=== PATIENT | male | born 1995 | race Caucasian/White ===

== ENCOUNTER 2019-01-08 20:03 | Emergency (ER) | payer BC ==
[2019-01-08 20:11] VITALS: BP 126/75
[2019-01-08] MEDS ORDERED: Amoxicillin/Clavulanate TAB* 875 MG PO ONE (20:37)
--- NOTE | 2019-01-08 20:50 | UC ---
Throat Pain/Nasal [place] HPI - HPI Summary HPI Summary: 23-year-old male comes in with a chief complaint of sore throat. Been going on for about 5 days. He did see [facility] yesterday and strep was negative. He was started on prednisone 40 mg a day for 5 days. Month ago he had similar symptoms and he was treated at that time with an antibiotic and the steroid and he got better. He is feeling worse now. Sore throats worse when he swallows. Been taking acetaminophen which doesn't help very much. He has not been exceedingly fatigued. He is able to breathe okay. He's on been eating and drinking minimally due to the pain. - History of Current Complaint Chief Complaint: UCGeneralIllness Stated Complaint: SORE THROAT Time Seen by Provider: 01/08/19 20:15 Pain Intensity: 8 - Allergies/Home Medications Allergies/Adverse Reactions: Allergies Allergy/AdvReac Type Severity Reaction Status Date / Time No Known Allergies Allergy Verified 01/08/19 20:11 Home Medications: Home Medications predniSONE [Prednisone 20 MG TAB] 40 mg PO DAILY 01/08/19 [History Confirmed ] PMH/Surg Hx/FS Hx/Imm Hx Previously Healthy: Yes - Surgical History Surgical History: None - Family History Known Family History: Positive: Non-Contributory - Social History Alcohol Use: Weekly Substance Use Type: None Smoking Status (MU): Never Smoked Tobacco Review of Systems All Other Systems Reviewed And Are Negative: Yes Constitutional: Positive: Chills Skin: Positive: Negative Eyes: Positive: Negative ENT: Positive: Sore Throat Respiratory: Positive: Negative Cardiovascular: Positive: Negative Gastrointestinal: Positive: Negative Motor: Positive: Negative Neurovascular: Positive: Negative Musculoskeletal: Positive: Negative Neurological: Positive: Negative Psychological: Positive: Negative Is Patient Immunocompromised?: No Physical Exam Triage Information Reviewed: Yes Appearance: No Pain Distress, Well-Nourished, Ill-Appearing - MILD Vital Signs: Initial Vital Signs Temp 98.9 F 01/08/19 20:07 Pulse 99 01/08/19 20:07 Resp 16 01/08/19 20:07 BP 126/75 01/08/19 20:07 Pulse Ox 100 01/08/19 20:07 Vital Signs Reviewed: Yes Eye Exam: Normal Eyes: Positive: Conjunctiva Clear ENT: Positive: Pharyngeal erythema, TMs normal, Tonsillar swelling - 3+ B/L, Tonsillar exudate, Uvula midline. Negative: Muffled voice, Hoarse voice Neck: Positive: Supple Respiratory: Positive: Lungs clear, Normal breath sounds, No respiratory distress Cardiovascular: Positive: RRR Musculoskeletal: Positive: Strength Intact, ROM Intact Neurological: Positive: Alert, Muscle Tone Normal Psychological Exam: Normal Psychological: Positive: Age Appropriate Behavior Skin Exam: Normal Throat Pain/Nasal Course/Dx - Course Course Of Treatment: DISCUSSED VIRAL VERSES BACTERIAL INFECTION AND THE ROLE OF ANTIBIOTICS. THE PATIENT PREFERS TO BE ON ANTIBIOTICS AT THIS TIME. DISCUSSED FURTHER EVALUATION IN THE EMERGENCY DEPARTMENT IF CONDITION WORSENS. - Differential Dx/Diagnosis Provider Diagnosis: Tonsillitis Discharge - Sign-Out/Discharge Documenting (check all that apply): Patient Departure All imaging exams completed and their final reports reviewed: No Studies - Discharge Plan Condition: Stable Disposition: HOME Prescriptions: Amoxicillin/Clavulanate TAB* [Augmentin TAB 875*] 875 mg PO BID #18 tab Patient Education Materials: Tonsillitis (ED) Referrals: [facility] [Provider Group] Additional Instructions: FOLLOW UP WITH YOUR DOCTOR IF NOT COMPLETELY IMPROVED. GO TO THE EMERGENCY DEPARTMENT IF YOUR CONDITION WORSENS; DIFFICULTY SWALLOWING OR BREATHING, YOU FEEL ILL OR ANY QUESTIONS OR CONCERNS. - Billing Disposition and Condition Condition: STABLE Disposition: Home
== END 2019-01-08 21:04 | disposition home or self-care (01) ==
LOC: UCEAST 20:03
DX: J03.90 Acute tonsillitis, unspecified (principal)
CPT/HCPCS: 99202; A9270-GY; G0463

== ENCOUNTER 2019-01-09 22:45 | Emergency (ER) | payer BC ==
[2019-01-10] MEDS ORDERED: Lidocaine 2% VISCOUS* 15 ML UDC PO ONE (00:50)
[2019-01-10] MEDS ORDERED: Ibuprofen PED LIQ 100 MG/5 ML UDC PO ONE (01:20)
--- NOTE | 2019-01-10 01:48 | ED ---
Throat Pain/Nasal Congestion - HPI Summary HPI Summary: Patient complains of sore throat and swollen tonsils 6 days. Seen at [facility] 2 days ago, negative for strep, placed on Augmentin and prednisone. Started Augmentin yesterday, started prednisone 2 days ago at 20 mg a day. Patient states no improvement in symptoms. Denies fever, BAEZ, cough, CP, SOB, N/ V/V abdominal pain, change in urine, change in BM. Medical history is none. - History of Current Complaint Chief Complaint: EDThroatPain Time Seen by Provider: 01/10/19 00:49 Hx Obtained From: Patient Onset/Duration: Gradual Onset, Lasting Days Severity: Severe Associated Signs And Symptoms: Positive: Negative Cough: None - Allergies/Home Medications Allergies/Adverse Reactions: Allergies Allergy/AdvReac Type Severity Reaction Status Date / Time No Known Allergies Allergy Verified 01/09/19 22:48 PMH/Surg Hx/FS Hx/Imm Hx Endocrine/Hematology History: Denies: Hx Anticoagulant Therapy Cardiovascular History: Denies: Hx Pacemaker/ICD History: Denies: Hx Dialysis Sensory History: Denies: Hx Eye Prosthesis Opthamlomology History: Denies: Hx Legally Blind EENT History: Denies: Hx Deafness Neurological History: Denies: Hx Dementia Psychiatric History: Denies: Hx Autism Infectious Disease History: No Infectious Disease History: Denies: Traveled Outside the [place] in Last 30 Days - Family History Known Family History: Positive: Non-Contributory - Social History Alcohol Use: Weekly Substance Use Type: Reports: None Smoking Status (MU): Never Smoked Tobacco Review of Systems Constitutional: Negative Eyes: Negative Positive: Sore Throat Cardiovascular: Negative Respiratory: Negative Gastrointestinal: Negative Genitourinary: Negative Musculoskeletal: Negative Skin: Negative Neurological: Negative Psychological: Normal All Other Systems Reviewed And Are Negative: Yes Physical Exam - Summary Physical Exam Summary: Uvula midline. Swollen tonsil on right side. No exudate. ENT exam otherwise unremarkable. Lung sounds clear to auscultation bilaterally. Limited range of motion of jaw. Triage Information Reviewed: Yes Vital Signs On Initial Exam: Initial Vitals Temp Pulse Resp BP Pulse Ox 99.7 F 93 16 156/87 99 01/09/19 22:47 01/09/19 22:47 01/09/19 22:47 01/09/19 22:47 05/25/19 22:47 Vital Signs Reviewed: Yes Appearance: Positive: Well-Appearing Skin: Positive: Warm Head/Face: Positive: Normal Head/Face Inspection Eyes: Positive: Normal ENT: Positive: Pharyngeal erythema, Tonsillar swelling, Trismus, Hoarse voice, Uvula midline. Negative: Tonsillar exudate Neck: Positive: Supple Respiratory/Lung Sounds: Positive: Clear to Auscultation Cardiovascular: Positive: Normal Abdomen Description: Positive: Nontender Musculoskeletal: Positive: Normal Neurological: Positive: Normal Psychiatric: Positive: Normal AVPU Assessment: Alert - [place] Coma Scale Best Eye Response: 4 - Spontaneous Best Motor Response: 6 - Obeys Commands Best Verbal Response: 5 - Oriented Coma Scale Total: 15 Diagnostics - Vital Signs Vital Signs Temp Pulse Resp BP Pulse Ox 01/09/19 22:47 99.7 F 93 16 156/87 99 - Laboratory Result Diagrams: 01/10/19 02:21 01/10/19 02:21 Lab Statement: Any lab studies that have been ordered have been reviewed, and results considered in the medical decision making process. EENT Course/Dx - Course Course Of Treatment: Patient complains of sore throat and swollen tonsils 6 days. Seen at [facility] 2 days ago, negative for strep, placed on Augmentin and prednisone. Started Augmentin yesterday, started prednisone 2 days ago at 20 mg a day. Patient states no improvement in symptoms. Denies fever, BAEZ, cough, CP, SOB, N/V/V abdominal pain, change in urine, change in BM. Medical history is none. Physical exam:Uvula midline. Swollen tonsil on right side. No exudate. ENT exam otherwise unremarkable. Lung sounds clear to auscultation bilaterally. Limited range of motion of jaw. Vital signs within normal limits. WBC 15.8. Labs otherwise unremarkable. Attempted drainage of potential peritonsillar abscess performed by Dr. Latham. Negative purulent drainage. Patient advised to continue on Augmentin and prednisone. - Diagnoses Provider Diagnoses: Tonsillitis Discharge - Sign-Out/Discharge Documenting (check all that apply): Sign-Out Patient Signing out patient TO: Yayo Dela Cruz Patient Received Moderate/Deep Sedation with Procedure: No - Discharge Plan Condition: Stable Disposition: HOME Patient Education Materials: Pharyngitis (ED) Referrals: [facility] [Outside] Additional Instructions: We were not able to aspirate any pus from the right tonsil, though I suspected there was an abscess. This means that the area is just really inflamed from the infection, so the antibiotic is important in fighting that infection. I do not expect you to get significantly worse from here on in, so if you do we need to see you back here. Take the prescribed antibiotic and get plenty of fluids. Motrin or tylenol can help with the pain. - Billing Disposition and Condition Condition: STABLE Disposition: Home
[2019-01-10] MEDS ORDERED: cefTRIAXone(*) 1 GM in NS 0.9% 50 ML* 50 ML IVPB ONE (02:14)
[2019-01-10] MEDS ORDERED: NS 0.9% 1000 ML** 1,000 ML IV ONE (02:14)
[2019-01-10] MEDS ORDERED: Benzocaine/Butamben/Tetracain (CETACAINE - SINGLE USE) 5 gm TOPICAL ONE (02:25)
[2019-01-10 02:27] LABS: Hematocrit 43 % (42-52); Hemoglobin 13.9 g/dL (14.0-18.0); Mean Corpuscular HGB Conc 33 g/dL (31-36); Mean Corpuscular Hemoglobin 27 pg (27-31); Mean Corpuscular Volume 83 fL (80-94); Platelet Count 287 10^3/uL (150-450); Red Blood Count 5.13 10^6 /uL (4.18-5.48); Red Cell Distribution Width 14 % (10.5-15); White Blood Count 15.8 10^3/uL (3.5-10.8)
[2019-01-10 02:44] LABS: BUN/Creatinine Ratio 11.5 (8-20); Calcium 10.2 mg/dL (8.6-10.3); EGFR Non-African American 125.6 (>60); Potassium 3.7 mmol/L (3.5-5.0)
[2019-01-10 03:18] LABS: ABS Basophils 0.1 10^3/ul (0-0.2); ABS Monocytes 2.2 10^3/ul (0-0.8); ABS Neutrophils 11.5 10^3/ul (1.5-7.7); Eosinophil % 0.2 %; Lymphocyte % 12.4 %
[2019-01-10 06:49] VITALS: BP 131/78
== END 2019-01-10 06:53 | disposition home or self-care (01) ==
LOC: ED 22:45
DX: J03.90 Acute tonsillitis, unspecified (principal); J02.9 Acute pharyngitis, unspecified
CPT/HCPCS: 36415; 80048; 85025; 96365; 99283; J0696